=== PATIENT | male | born 1960 | race Caucasian/White ===

== ENCOUNTER 2016-08-27 20:44 | Outpatient (CLI) | payer OTHER | END 2016-08-27 20:45 | disposition critical access hospital (66) | DX: R07.9 Chest pain, unspecified (principal) | CPT/HCPCS: A0425; A0427 ==

== ENCOUNTER 2016-08-27 21:12 | Emergency (ER) | payer OTHER ==
[2016-08-27] MEDS ORDERED: NITROGLYCERIN SL 0.4 MG TABLET SL STA (21:29)
[2016-08-27] MEDS ORDERED: NITROGLYCERIN SL 0.4 MG TABLET SL ONE (21:32)
[2016-08-27] MEDS ORDERED: IOPAMIDOL-300 100 ML VIAL IVP ONE (22:51)
[2016-08-28] MEDS ORDERED: RIVAROXABAN 15 MG TABLET PO STA (00:05)
== END 2016-08-28 01:42 | disposition home or self-care (01) ==
DX: I26.99 Other pulmonary embolism without acute cor pulmonale (principal); I45.10 Unspecified right bundle-branch block; R94.31 Abnormal electrocardiogram [ECG] [EKG]
CPT/HCPCS: 36415; 71020; 71275; 80053; 83690; 84484; 85025; 93005; 93010; 99284; A9270; Q9967

== ENCOUNTER 2016-12-01 13:40 | Outpatient (CLI) | payer OTHER | END 2016-12-01 13:41 | disposition critical access hospital (66) | LOC: EMS 13:40 | PROVIDERS: ATTEND Surgery | DX: R07.89 Other chest pain (principal) | CPT/HCPCS: A0425; A0427 ==

== ENCOUNTER 2016-12-01 14:07 | Emergency (ER) | payer OTHER ==
[2016-12-01 15:14] LABS: BASOPHILS # (AUTO) 0.1 10^3/uL (0.0-0.1); BASOPHILS % (AUTO) 1.2 %; EOSINOPHILS % (AUTO) 0.6 %; HCT - HEMATOCRIT 43.7 % (42.0-52.0); HGB - HEMOGLOBIN 14.6 g/dL (14.0-18.0); LYMPHOCYTES # (AUTO) 1.9 10^3/uL (1.5-3.5); LYMPHOCYTES % (AUTO) 26.6 %; MEAN CORPUSCULAR HEMOGLOBIN 29.8 pg (27.0-31.0); MEAN CORPUSCULAR HGB CONC 33.5 g/dL (32.0-36.0); MEAN CORPUSCULAR VOLUME 88.9 fL (80.0-94.0); MEAN PLATELET VOLUME 9.3 fL (7.4-11.4); MONOCYTES # (AUTO) 0.3 10^3/uL (0.0-1.0); MONOCYTES % (AUTO) 4.9 %; NEUTROPHILS # (AUTO) 4.7 10^3/uL (1.5-6.6); NEUTROPHILS % (AUTO) 66.7 %; NUCLEATED RED BLOOD CELLS AUTO 0.1 /100WBC; RED BLOOD COUNT 4.91 10^6/uL (4.70-6.10); RED CELL DISTRIBUTION WIDTH 13.2 % (12.0-15.0); UNCORRECTED WHITE BLOOD COUNT 7.1 x10^3/uL; WHITE BLOOD COUNT 7.1 x10^3/uL (4.8-10.8)
[2016-12-01 15:23] LABS: CREATININE 0.9 mg/dL (0.6-1.2)
--- NOTE | 2016-12-01 15:42 | XRAY Preliminary Report ---
Exam: XR Chest 2 View PA/LAT IMPRESSION: Normal 2-view chest radiography. [facility] SITE ID: [id number]
--- NOTE | 2016-12-01 15:44 | XRAY Report ---
EXAM: CHEST RADIOGRAPHY EXAM DATE: 12/01/2016 03:28 PM. CLINICAL HISTORY: Chest pain and shortness of breath. History of PE 3 months ago. COMPARISON: 08/27/2016. TECHNIQUE: 2 views. FINDINGS: Lungs/Pleura: No focal opacities evident. No pleural effusion. No pneumothorax. Normal volumes. Mediastinum: Heart and mediastinal contours are unremarkable. Other: No compression fractures. IMPRESSION: Normal 2-view chest radiography. [facility] Referring Provider Line: [phone] SITE ID: [id number]
[2016-12-01] MEDS ORDERED: IOPAMIDOL-300 100 ML VIAL IVP ONE (16:19)
--- NOTE | 2016-12-01 16:40 | ED Physician Documentation ---
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 denies: Cough GI: denies: Abdominal Pain, Nausea, Vomiting Musculoskeletal: denies: Extremity pain, Extremity swelling Endocrine: denies: Easy bruising / bleeding Immunocompromised: denies: Immunocompromised PD PAST MEDICAL HISTORY - Past Medical History Cardiovascular: None Respiratory: None Neuro: None Endocrine/Autoimmune: None GI: None, Diverticulitis : None HEENT: None Musculoskeletal: None - Past Surgical History Past Surgical History: No - Present Medications Home Medications: Ambulatory Orders Medication Instructions Recorded Confirmed Rivaroxaban [Xarelto] 15 mg PO BID #40 tablet 08/28/16 12/01/16 - Allergies Allergies/Adverse Reactions: Allergies Allergy/AdvReac Type Severity Reaction Status Date / Time No Known Drug Allergies Allergy Verified 08/27/16 21:20 - Social History Does the pt smoke?: No Smoking Status: Never smoker PD ED PE NORMAL - Vitals Vital signs reviewed: Yes - Cardiac Cardiac: RRR - Respiratory Respiratory: No respiratory distress, Clear bilaterally - Abdomen Abdomen: Soft, Non tender - Derm Derm: Normal color - Extremities Extremities: No deformity, No edema - Neuro Neuro: Alert and oriented X 3 Results - Vitals Vitals: Vital Signs - 24 hr 12/01/16 12/01/16 12/01/16 14:07 14:14 14:15 Temperature 37.2 C Heart Rate 91 72 Respiratory 20 17 Rate Blood Pressure 131/87 H 129/80 O2 Saturation 100 98 12/01/16 12/01/16 15:32 17:17 Temperature Heart Rate 73 69 Respiratory 16 17 Rate Blood Pressure 131/81 H 148/97 H O2 Saturation 97 98 Oxygen O2 Source Room air - EKG (time done) 1420 Rate: Rate (enter#) Rhythm: NSR Lillian: Normal Intervals: Normal CA, RBBB (partial) Ischemia: Other (poor baseline II and III doubt elev will recheck EKG) 1712 Rate: Rate (enter#) Rhythm: NSR Intervals: RBBB Compare to prior EKG: Unchanged from prior EKG (similar to EKG # 1) - Labs Labs: Laboratory Tests 12/01/16 12/01/16 12/01/16 15:00 15:00 15:00 WBC 7.1 RBC 4.91 Hgb 14.6 Hct 43.7 MCV 88.9 MCH 29.8 MCHC 33.5 RDW 13.2 Plt Count 192 MPV 9.3 Neut # 4.7 Lymph # 1.9 [place] # 0.3 Eos # 0.0 Baso # 0.1 Absolute Nucleated RBC 0.00 Nucleated RBCs 0.1 D-Dimer Sodium 139 Potassium 4.0 Chloride 108 Carbon Dioxide 25 Anion Gap 6.0 BUN 16 Creatinine 0.9 Estimated GFR (MDRD) 87 L Glucose 107 H Calcium 9.0 Troponin I < 0.04 12/01/16 12/01/16 15:00 15:53 WBC RBC Hgb Hct MCV MCH MCHC RDW Plt Count MPV Neut # Lymph # [place] # Eos # Baso # Absolute Nucleated RBC Nucleated RBCs D-Dimer < 200.0 L Sodium Potassium Chloride Carbon Dioxide Anion Gap BUN Creatinine Estimated GFR (MDRD) Glucose Calcium Troponin I < 0.04 - Rads (name of study) CTPA Radiology: See rad report (no PE no dissection) Departure - Departure Disposition: 01 Home, Self Care Clinical Impression: Chest pain Qualifiers: Chest pain type: unspecified Qualified Code(s): R07.9 - Chest pain, unspecified Condition: Good Instructions: ED Chest Pain Atypical Unkn Cause Follow-Up: [facility] [Provider Group] Comments: All your tests came back fine 2 EKGs and two blood tests for your heart were fine The CT scan did not show another blood clot in your lung and no aneurysm or tear of you aorta I am not sure what did cause the pain, but given the reassuring work up I think it is OK for you to go home Please follow up at [facility] as needed Return if worse And have your doctor monitor your blood pressure - it was high when you arrived though better later on
--- NOTE | 2016-12-01 16:44 | CT Preliminary Report ---
Exam: CT Chest Angio (PE) IMPRESSION: 1. No pulmonary embolus. 2. No aortic aneurysm or dissection. 3. Clear lungs. [facility] SITE ID: [id number]
--- NOTE | 2016-12-01 16:46 | CT Report ---
EXAM: CT ANGIOGRAM CHEST EXAM DATE: 12/01/2016 04:22 PM. CLINICAL HISTORY: Recurrent chest pain and shortness of breath. Concern for pulmonary embolus. COMPARISON: 08/27/2016. TECHNIQUE: Routine helical imaging was performed through the chest in the pulmonary arterial phase. I V Contrast: 100 cc of Isovue-300. Reconstructions: Coronal 3-D MIP reconstructions.Sagittal and coron al. In accordance with CT protocol optimization, one or more of the following dose reduction techniques w ere utilized for this exam: automated exposure control, adjustment of mA and/or KV based on patient s ize, or use of iterative reconstructive technique. FINDINGS: Pulmonary Arteries: Diagnostic quality: Adequate through the segmental arteries. No evidence for acute or chronic pulmona ry emboli. RV/LV is within normal limits. There is no interventricular septal bowing. There is no reflux of cont rast material in the IVC. Lungs/Pleura: No consolidation, nodules, or edema. No effusions or pneumothorax. Mediastinum: Mild coronary artery calcification noted. No cardiac enlargement or adenopathy. Thoracic Aorta: Unremarkable. Upper Abdomen: Prominent left extrarenal pelvis noted. Other: None. IMPRESSION: 1. No pulmonary embolus. 2. No aortic aneurysm or dissection. 3. Clear lungs. [facility] Referring Provider Line: [phone] SITE ID: [id number]
[2016-12-01 17:18] VITALS: BP 148/97
== END 2016-12-01 17:53 | disposition home or self-care (01) ==
LOC: EDUNIT# → ED 14:07
DX: R07.9 Chest pain, unspecified (principal); Z86.711 Personal history of pulmonary embolism; Z79.01 Long term (current) use of anticoagulants
CPT/HCPCS: 36415; 71020; 71275; 80048; 84484; 85025; 85379; 93005; 99284; Q9967